=== PATIENT | male | born 2000 | race Caucasian/White ===

== ENCOUNTER → 2019-12-01 | Outpatient (CLI) | payer OTHER ==
--- NOTE | 2019-12-01 16:19 | XR ---
EXAMINATION TYPE: XR elbow complete LT DATE OF EXAM: 12/01/2019 COMPARISON: NONE HISTORY: 19-year-old male strain or muscle, fascia and tendon, left elbow. TECHNIQUE: 3 views FINDINGS: No elbow joint effusion. No acute fracture, subluxation, or dislocation. IMPRESSION: No acute osseous abnormality seen.
== END | disposition home or self-care (01) ==
LOC: RADXRMAIN 15:56
PROVIDERS: ATTEND Emergency Medicine
DX: S46.212A Strain of muscle, fascia and tendon of other parts of biceps, left arm, initial encounter (principal)